=== PATIENT | female | born 1960 | race Caucasian/White ===

== ENCOUNTER 2018-02-09 05:45 | Emergency (ER) | payer BC ==
[2018-02-09] MEDS ORDERED: HYDROmorphone 0.5 MG/0.5 ML Syringe IVPUSH ONE (06:00)
[2018-02-09] MEDS ORDERED: Sodium Chloride 0.9% 1,000 ML IV ONE (06:00)
[2018-02-09] MEDS ORDERED: Dicyclomine 20 MG/2 ML SDV IM ONE (06:00)
--- NOTE | 2018-02-09 06:05 | EDM.PDOC ---
<Bora Jones - Last Filed: 02/09/18 06:47> ED HPI GENERAL MEDICAL PROBLEM - General Chief Complaint: General Stated Complaint: DEHYDRATION, DIZZINESS, PAIN [phone] Time Seen by Provider: 02/09/18 06:01 Source of Information: Reports: Patient History Limitations: Reports: No Limitations - History of Present Illness INITIAL COMMENTS - FREE TEXT/NARRATIVE: 3 days h/o diarrhoea from 5 year h/o C Diff. just finished vanco was OK then 3 days ago diarrhoea returned. usually gets IV with IM bentyl and IV dilaudid. 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 tonight been getting light headed & dizzy and feels dehydrated. Generalized Pain Score (Numeric/FACES): 7 - Related Data Allergies Allergy/AdvReac Type Severity Reaction Status Date / Time buspirone [From BuSpar] Allergy Cannot Verified 02/09/18 05:52 Remember ciprofloxacin [From Cipro] Allergy Cannot Verified 02/09/18 05:52 Remember codeine Allergy Cannot Verified 02/09/18 05:52 Remember divalproex sodium Allergy Cannot Verified 02/09/18 05:52 [From Depakote] Remember levetiracetam [From Keppra] Allergy Cannot Verified 02/09/18 05:52 Remember penicillin G Allergy Cannot Verified 02/09/18 05:52 Remember phenobarbital Allergy Cannot Verified 02/09/18 05:52 Remember phenytoin [From Dilantin] Allergy Cannot Verified 02/09/18 05:52 Remember venlafaxine [From Effexor] Allergy Cannot Verified 02/09/18 05:52 Remember Home Meds: Home Meds Cholecalciferol (Vitamin D3) [Vitamin D] 1 tab PO DAILY 02/09/18 [History] Citalopram Hydrobromide [Celexa] 40 mg PO DAILY 02/09/18 [History] Levothyroxine 75 mcg PO DAILY 02/09/18 [History] Spironolactone [Aldactone] 50 mg PO DAILY 02/09/18 [History] ED ROS GENERAL - Review of Systems Review Of Systems: ROS reveals no pertinent complaints other than HPI. ED EXAM, GENERAL - Physical Exam Exam: See Below Exam Limited By: No Limitations General Appearance: Alert, WD/WN, Mild Distress, Other (discomfort) Ears: Hearing Grossly Normal Throat/Mouth: Normal Voice, No Airway Compromise Head: Atraumatic Neck: Non-Tender, Full Range of Motion Respiratory/Chest: No Respiratory Distress Cardiovascular: Regular Rate, Rhythm GI/Abdominal: Tender, Other (general discomfort with hyper BS). No: Distended, Guarding, Rigid, Rebound Neurological: Alert, Oriented, Normal Cognition, Normal Gait, No Motor/Sensory Deficits Psychiatric: Normal Affect, Normal Mood Skin Exam: Warm, Dry, Normal Color Lymphatic: No Adenopathy Course - Vital Signs Last Recorded V/S: Last Vital Signs Temp 97.8 F 02/09/18 05:53 Pulse 64 02/09/18 05:53 Resp 14 02/09/18 05:53 BP 149/69 H 02/09/18 05:53 Pulse Ox 97 02/09/18 05:53 - Orders/Labs/Meds Labs: Laboratory Tests 02/09/18 02/09/18 Range/Units 06:10 06:10 WBC 5.8 (5.0-10.0) 10^3/uL RBC 3.78 L (4.2-5.4) 10^6/uL Hgb 10.6 L (12.0-16.0) g/dL Hct 33.5 L (37.0-47.0) % MCV 88.6 (80-100) fL MCH 28.0 (27.0-34.0) pg MCHC 31.6 L (33.0-35.0) g/dL Plt Count 211 (150-450) 10^3/uL Neut % (Auto) 43.9 (42.2-75.2) % Lymph % (Auto) 44.8 (20.5-50.1) % Nolan % (Auto) 8.4 H (2-8) % Eos % (Auto) 2.2 (1.0-3.0) % Baso % (Auto) 0.7 (0.0-1.0) % Sodium 142 (138-146) mmol/L Potassium 3.7 (3.5-4.9) mmol/L Chloride 104 (98-109) mmol/L Carbon Dioxide 26 (24-29) mmol/L Anion Gap 15.7 BUN 13 (8-26) mg/dL Creatinine 0.5 L (0.6-1.3) mg/dL Est Cr Clr Drug Dosing 109.78 mL/min Estimated GFR (MDRD) > 60 BUN/Creatinine Ratio Cancelled Glucose 86 (70-105) mg/dL Calcium Total Bilirubin Cancelled AST Cancelled ALT Cancelled Alkaline Phosphatase Cancelled Total Protein Cancelled Albumin Cancelled Globulin Cancelled Albumin/Globulin Ratio Cancelled Meds: Medications Discontinued Medications Generic Name Dose Route Start Last Admin Trade Name Марина PRN Reason Stop Dose Admin Dicyclomine HCl 20 mg 02/09/18 06:00 02/09/18 06:11 Bentyl IM 02/09/18 06:01 20 mg ONETIME ONE Administration Hydromorphone HCl 1 mg 02/09/18 06:00 02/09/18 06:13 Dilaudid IVPUSH 02/09/18 06:01 1 mg ONETIME ONE Administration Sodium Chloride 1,000 mls @ 999 mls/hr 02/09/18 06:00 02/09/18 06:09 Normal Saline IV 02/09/18 07:00 999 mls/hr .BOLUS ONE Administration Ondansetron HCl 4 mg 02/09/18 06:15 Zofran IV 02/09/18 06:16 ONETIME ONE - Re-Assessments/Exams Free Text/Narrative Re-Assessment/Exam: 02/09/18 06:40 results discussed with pt who is feeling better presently. Departure - Departure Disposition: Home, Self-Care 01 Condition: Good Clinical Impression: Dehydration syndrome, C. difficile diarrhea - Discharge Information Instructions: Clostridium Difficile Infection, [id number] Forms: ED Department Discharge Additional Instructions: 1) rest 2) continue regular treatment 3) recheck if there is any change or concern <Hortencia Goodwin - Last Filed: 02/09/18 07:20> Departure - Departure Time of Disposition: 07:20
[2018-02-09] MEDS ORDERED: Ondansetron 4 MG/2 ML SDV IV ONE (06:15)
[2018-02-09 06:35] LABS: CHLORIDE,CL 104 mmol/L (98-109); SODIUM,NA 142 mmol/L (138-146)
== END 2018-02-09 08:11 | disposition home or self-care (01) ==
LOC: DL.ED 05:45
DX: A04.72 Enterocolitis due to Clostridium difficile, not specified as recurrent (principal); E86.0 Dehydration; Z88.5 Allergy status to narcotic agent; Z88.8 Allergy status to other drugs, medicaments and biological substances; Z88.0 Allergy status to penicillin; Z79.899 Other long term (current) drug therapy; Z86.19 Personal history of other infectious and parasitic diseases
CPT/HCPCS: 36415; 80048; 85025; 96361; 96372; 96374; 99284; J0500; J1170; J7030